=== PATIENT | female | born 1990 | race African-American/Black ===

== ENCOUNTER 2019-01-12 23:16 | Emergency (ER) | payer MEDICAID ==
[~2019-01-12] VITALS: Ht 170.2 cm; Wt 61.2 kg
[2019-01-12] MEDS ORDERED: ONDANSETRON HCL/PF 4 MG/2 ML VIAL ONE (23:57)
[2019-01-12] MEDS ORDERED: FAMOTIDINE/PF INJ 20 MG/2 ML VIAL IV ONE (23:58)
[2019-01-13] MEDS ORDERED: ONDANSETRON HCL/PF 4 MG/2 ML VIAL IVP ONE
[2019-01-13] MEDS ORDERED: MAG HYDROX/AL HYDROX/SIMETH 30 ML UDC PO ONE
[2019-01-13] MEDS ORDERED: FAMOTIDINE/PF INJ 20 MG/2 ML VIAL IV ONE
[2019-01-13] MEDS ORDERED: IV NS 0.9% 1,000 ML BAG IV ONE
[2019-01-13] MEDS ORDERED: LIDOCAINE VISCOUS 2% UD 15 ML UDC MM ONE
--- NOTE | 2019-01-13 | NUR ---
BIBSELF C/O ABDOMINAL CRAMPING X1 DAY. ALSO C/O MULTIPLE EPISODES OF VOMITTING. DENIES DIARRHEA, DYSURIA, SOB, CP. PT AAOX4. RESPIRATIONS EVEN AND UNLABORED. SKIN WARM AND INTACT. NO ACUTE DISTRESS NOTED AT THIS TIME. WILL CONTINUE TO MONITOR
--- NOTE | 2019-01-13 00:04 | NUR ---
IV INITIATED R AC 18. LABS DRAWN FROM SITE. LIFE GUARD AT BEDSIDE FOR COLLECTION
[2019-01-13 00:08] LABS: BASOPHILS # (AUTO) 0.1 /CMM (0.0-0.2); BASOPHILS % (AUTO) 0.9 % (0.0-2.0); EOSINOPHILS % (AUTO) 0.4 % (0.0-6.0); HEMATOCRIT 38 % (33-45); HEMOGLOBIN 13.2 g/dL (11.5-14.8); LYMPHOCYTES # (AUTO) 0.8 /CMM (0.8-4.8); LYMPHOCYTES % (AUTO) 6.2 % (20.0-44.0); MEAN CORPUSCULAR HGB CONC 35 g/dl (31.0-36.0); MEAN CORPUSCULAR VOLUME 93 fL (82-100); MONOCYTES # (AUTO) 0.5 /CMM (0.1-1.30); MONOCYTES % (AUTO) 3.5 % (2.0-12.0); NEUTROPHILS # (AUTO) 11.8 /CMM (1.8-8.9); PLATELET COUNT (AUTO) 204 /CMM (150-450); RED BLOOD CELL COUNT(AUTO) 4.08 MIL/uL (4.0-5.2); WHITE BLOOD COUNT (AUTO) 13.2 K/uL (4.3-11.0)
[2019-01-13 00:14] LABS: CALCIUM, SERUM 9.3 mg/dL (8.5-10.1); CREATININE 0.9 mg/dL (0.6-1.3); POTASSIUM 3.7 mmol/L (3.5-5.1)
[2019-01-13 00:20] LABS: ALBUMIN 4.4 g/dL (3.4-5.0); BILIRUBIN,DIRECT 0.2 mg/dL (0.0-0.2); BILIRUBIN,TOTAL 1.1 mg/dL (0.2-1.0); TOTAL PROTEIN, SERUM 8.3 g/dL (6.4-8.2)
[2019-01-13] MEDS ORDERED: LIDOCAINE VISCOUS 2% UD 15 ML UDC ONE (00:51)
[2019-01-13] MEDS ORDERED: MAG HYDROX/AL HYDROX/SIMETH 30 ML UDC ONE (00:52)
--- NOTE | 2019-01-13 01:12 | NUR ---
PT REQUESTING URINE TEST UPON DISCHARGE, AWARE
--- NOTE | 2019-01-13 01:17 | NUR ---
URINE COLLECTED AND SENT TO LAB
[2019-01-13 01:27] LABS: APPEARANCE,URINE Clear (CLEAR); BILIRUBIN,URINE Negative (NEGATIVE); BLOOD, URINE Trace-lysed Ery/uL (NEGATIVE); COLOR,URINE Yellow (YELLOW); KETONES,URINE 40 (NEGATIVE); LEUKOCYTE ESTERASE ,URINE Negative (NEGATIVE); NITRITE, URINE Negative (NEGATIVE); PROTEIN,URINE Negative (NEGATIVE); UGLUCOSE Negative (NEGATIVE); UROBILINOGEN,URINE 0.2 EU/dL (0.2)
[2019-01-13 01:54] LABS: BACTERIA,URINE None seen /HPF (None Seen); RBC,URINE 0-2 /HPF (0-2); SQUAMOUS EPITHELIAL CELL,UR Few /HPF (None Seen); WBC,URINE 0-2 /HPF (0-3)
--- NOTE | 2019-01-13 02:10 | NUR ---
Patient discharged to home in stable condition. Written and verbal after care instructions given. Patient verbalizes understanding of instruction. IV removed. Catheter intact and site benign. Pressure and 4x4 applied to site. No bleeding noted. Pt ambulatory with a steady gait
[2019-01-13 02:12] VITALS: BP 146/89
== END 2019-01-13 02:12 | disposition home or self-care (01) ==
LOC: ER 23:19
DX: R11.10 Vomiting, unspecified (principal); R10.13 Epigastric pain; Z60.2 Problems related to living alone
CPT/HCPCS: 36415; 80048; 80076; 81001; 85025; 96361; 96374; 96375; 99283; J2405; J3490; J7030; 81000-TC

== ENCOUNTER 2019-03-15 16:27 | Emergency (ER) | payer MEDICAID ==
[~2019-03-15] VITALS: Ht 170.2 cm; Wt 68.0 kg
[2019-03-15 16:45] VITALS: BP 126/82
[2019-03-15] MEDS ORDERED: HYDROCODONE/APAP 5/325MG 1 EACH TABLET ONE (17:56)
[2019-03-15] MEDS ORDERED: HYDROCODONE/APAP 5/325MG 1 EACH TABLET PO ONE (18:00)
== END 2019-03-15 18:13 | disposition home or self-care (01) ==
LOC: ER 16:30
DX: S86.011A Strain of right Achilles tendon, initial encounter (principal); Z88.0 Allergy status to penicillin; Z60.2 Problems related to living alone; W18.30XA Fall on same level, unspecified, initial encounter; Y93.39 Activity, other involving climbing, rappelling and jumping off; Y92.89 Other specified places as the place of occurrence of the external cause; Y99.8 Other external cause status

== ENCOUNTER 2019-04-04 20:21 | Emergency (ER) | payer MEDICAID ==
[~2019-04-04] VITALS: Ht 170.2 cm; Wt 61.2 kg
--- NOTE | 2019-04-04 20:37 | NUR ---
PT BIBSELF C/O VAGINAL DISCHARGE WITH FAINT ODOR X2 DAYS. PT DENIES PELVIC PAIN, DYSURIA, HEMATURIA, VAGINAL BLEEDING. PT AAOX4. RESPIRATIONS EVEN AND UNLABORED. NO ACUTE DISTRESS NOTED AT THIS TIME. WAITING MD VASQUES.
--- NOTE | 2019-04-04 20:50 | NUR ---
SET UP FOR PELVIC EXAMINATION AT BEDSIDE
--- NOTE | 2019-04-04 21:10 | NUR ---
SWABS COLLECTED AND SENT TO LAB
[2019-04-04] MEDS ORDERED: FLUCONAZOLE (100 MG) 100 MG TABLET ONE (21:14)
--- NOTE | 2019-04-04 21:24 | NUR ---
URINE COLLECTED AND SENT TO LAB
[2019-04-04] MEDS ORDERED: FLUCONAZOLE (100 MG) 100 MG TABLET PO ONE (21:30)
[2019-04-04 21:35] LABS: APPEARANCE,URINE Clear (CLEAR); BILIRUBIN,URINE Negative (NEGATIVE); BLOOD, URINE Negative Ery/uL (NEGATIVE); COLOR,URINE Yellow (YELLOW); KETONES,URINE Negative (NEGATIVE); LEUKOCYTE ESTERASE ,URINE Trace (NEGATIVE); NITRITE, URINE Negative (NEGATIVE); PH,URINE 6.5 (5.0-8.0); PROTEIN,URINE Negative (NEGATIVE); UGLUCOSE Negative (NEGATIVE); UROBILINOGEN,URINE 0.2 EU/dL (0.2)
[2019-04-04 21:41] LABS: BACTERIA,URINE Few /HPF (None Seen); RBC,URINE NONE SEEN /HPF (0-2); SQUAMOUS EPITHELIAL CELL,UR Few /HPF (None Seen)
[2019-04-04] MEDS ORDERED: IBUPROFEN 600 MG TABLET PO ONE ×2 (21:59→22:00)
--- NOTE | 2019-04-04 22:03 | NUR ---
Patient discharged to home in stable condition. Written and verbal after care instructions given. Patient verbalizes understanding of instruction. Pt ambulatory with a steady gait
[2019-04-04 22:09] VITALS: BP 137/88
== END 2019-04-04 22:09 | disposition home or self-care (01) ==
LOC: ER 20:21
DX: B37.3 Candidiasis of vulva and vagina (principal); Z98.890 Other specified postprocedural states; Z88.0 Allergy status to penicillin; Z60.2 Problems related to living alone
CPT/HCPCS: 81000-TC; 84703-TC; 87210-TC; 87491; 87591

== ENCOUNTER 2019-07-12 05:37 | Emergency (ER) | payer MEDICAID ==
[~2019-07-12] VITALS: Ht 172.7 cm; Wt 61.2 kg
--- NOTE | 2019-07-12 05:45 | NUR ---
PT PRESENTED TO THE ER WITH A C/O N/V WITH WEAKNESS. PT STATED THAT SHE STARTED TO FEEL SICK AROUND MIDNIGHT AND HAS BEEN VOMITTING SINCE. PT STATED THAT SHE IS FREEZING, BUT IS AFEBRILE. PT IS DIAPHORETIC AND IS C/O FEELING WEAK. PT WAS PLACED ON THE MONITOR AND CONTINUOUS PULSE OX. RESP ARE EVEN AND UNLABORED.
[2019-07-12] MEDS ORDERED: ONDANSETRON HCL/PF 4 MG/2 ML VIAL ONE ×2 (05:50→07:07)
[2019-07-12] MEDS ORDERED: ONDANSETRON HCL/PF 4 MG/2 ML VIAL IVP ONE (06:00)
[2019-07-12] MEDS ORDERED: IV NS 0.9% 1,000 ML BAG IV ONE (06:00)
--- NOTE | 2019-07-12 06:14 | NUR ---
DR COLIN IS AT THE BEDSIDE SPEAKING TO THE PT.
[2019-07-12 06:17] LABS: BASOPHILS # (AUTO) 0.1 /CMM (0.0-0.2); BASOPHILS % (AUTO) 1.7 % (0.0-2.0); CALCIUM, SERUM 9.1 mg/dL (8.5-10.1); EOSINOPHILS % (AUTO) 2.3 % (0.0-6.0); HEMATOCRIT 39 % (33-45); HEMOGLOBIN 13.3 g/dL (11.5-14.8); LYMPHOCYTES # (AUTO) 0.9 /CMM (0.8-4.8); LYMPHOCYTES % (AUTO) 13.8 % (20.0-44.0); MEAN CORPUSCULAR HGB CONC 34 g/dl (31.0-36.0); MEAN CORPUSCULAR VOLUME 92 fL (82-100); MONOCYTES # (AUTO) 0.2 /CMM (0.1-1.30); MONOCYTES % (AUTO) 3.8 % (2.0-12.0); NEUTROPHILS % (AUTO) 78.4 % (43.0-81.0); PLATELET COUNT (AUTO) 207 /CMM (150-450); POTASSIUM 3.1 mmol/L (3.5-5.1); RED BLOOD CELL COUNT(AUTO) 4.28 MIL/uL (4.0-5.2); WHITE BLOOD COUNT (AUTO) 6.3 K/uL (4.3-11.0)
--- NOTE | 2019-07-12 06:18 | NUR ---
PT REC'D 2 WARM BLANKETS.
[2019-07-12 06:23] LABS: ALBUMIN 4.1 g/dL (3.4-5.0); BILIRUBIN,DIRECT 0.1 mg/dL (0.0-0.2); BILIRUBIN,TOTAL 0.3 mg/dL (0.2-1.0)
--- NOTE | 2019-07-12 07:05 | NUR ---
PT IS ACTIVELY VOMITTING. NOTIFIED. NEW ORDERS GIVEN.
--- NOTE | 2019-07-12 07:24 | NUR ---
PT ENDORSED TO [facility] FOR AUTUMN.
--- NOTE | 2019-07-12 07:24 | NUR ---
PT WAS ASSISTED VIA WC TO THE BATHROOM. URINE SAMPLE OBTAINED AND TAKEN TO LAB. LAB CALLED FOR P/U.
--- NOTE | 2019-07-12 07:26 | NUR ---
PT RECEIVED REPORT FROM JACKIE PARK FOR AUTUMN. PT IS AAOX4, NOT IN RESPIRATORY DISTRESS, KEPT RESTED AND COMFORTABLE, WILL CONTINUE TO MONITOR.
[2019-07-12 07:30] LABS: APPEARANCE,URINE CLEAR (CLEAR); BILIRUBIN,URINE NEGATIVE (NEGATIVE); BLOOD, URINE NEGATIVE Ery/uL (NEGATIVE); COLOR,URINE YELLOW (YELLOW); KETONES,URINE NEGATIVE (NEGATIVE); LEUKOCYTE ESTERASE ,URINE NEGATIVE (NEGATIVE); NITRITE, URINE NEGATIVE (NEGATIVE); PH,URINE 7.5 (5.0-8.0); PROTEIN,URINE NEGATIVE (NEGATIVE); UGLUCOSE NEGATIVE (NEGATIVE); UROBILINOGEN,URINE 0.2 EU/dL (0.2)
[2019-07-12 08:17] VITALS: BP 144/81
--- NOTE | 2019-07-12 08:17 | NUR ---
IV removed. Catheter intact and site benign. Pressure and 4x4 applied to site. No bleeding noted. Patient discharged to home in stable condition. Written and verbal after care instructions given. Patient verbalizes understanding of instruction.
== END 2019-07-12 08:18 | disposition home or self-care (01) ==
LOC: ER 05:38
DX: K29.70 Gastritis, unspecified, without bleeding (principal); R11.2 Nausea with vomiting, unspecified; Z98.890 Other specified postprocedural states; Z88.0 Allergy status to penicillin; Z60.2 Problems related to living alone
CPT/HCPCS: 36415; 80048; 80076; 81001; 83690; 84703; 85025; 96361; 96374; 99283; J2405 ×2; J7030; 81000-TC

== ENCOUNTER 2019-07-12 13:20 | Emergency (ER) | payer MEDICAID ==
[~2019-07-12] VITALS: Ht 172.7 cm; Wt 61.2 kg
[2019-07-12] MEDS ORDERED: METOCLOPRAMIDE HCL 10 MG/2 ML VIAL ONE (14:42)
[2019-07-12] MEDS ORDERED: diphenhydrAMINE HCL 50 MG/ML VIAL ONE (14:42)
[2019-07-12] MEDS ORDERED: FAMOTIDINE/PF INJ 20 MG/2 ML VIAL IV ONE ×2 (14:42→15:00)
[2019-07-12] MEDS ORDERED: IV D5/ 0.9% NACL 1,000 ML IV ONE (15:00)
[2019-07-12] MEDS ORDERED: METOCLOPRAMIDE HCL 10 MG/2 ML VIAL IV ONE ×2 (15:00→16:00)
[2019-07-12] MEDS ORDERED: diphenhydrAMINE HCL 50 MG/ML VIAL IV ONE (15:00)
--- NOTE | 2019-07-12 15:01 | NUR ---
c/o Epegastric pain w/ n/v. sts seen earlier for same reason. PT AAOX4, VSS. DENIES CP, SOB, DIZZINESS, DIARRHEA @ THIS TIME. PT SEEN & EVAL'D BY DR. RODRIGUEZ. MEDICATED ORDERED, PT JAMES WELL. WILL CONT TO MONITOR.
[2019-07-12 16:22] VITALS: BP 124/74
--- NOTE | 2019-07-12 16:22 | NUR ---
Patient discharged to home in stable condition. Written and verbal after care instructions given. Patient verbalizes understanding of instruction. IV removed. Catheter intact and site benign. Pressure and 4x4 applied to site. No bleeding noted.
== END 2019-07-12 16:23 | disposition home or self-care (01) ==
LOC: ER 13:24
DX: R10.13 Epigastric pain (principal); R11.2 Nausea with vomiting, unspecified; Z98.890 Other specified postprocedural states; Z88.0 Allergy status to penicillin; Z60.2 Problems related to living alone
CPT/HCPCS: 96365; 96375; 99283; J1200; J2765; J3490; J7042

== ENCOUNTER 2020-02-13 09:45 | Emergency (ER) | payer MEDICAID ==
[~2020-02-13] VITALS: Ht 172.7 cm; Wt 63.5 kg
--- NOTE | 2020-02-13 09:54 | NUR ---
CAME IN FOR ABDOMINAL PAIN, NAUSEA AND VOMITING SINCE LAST NIGHT. TO ER BED 2, HOOKED TO MONITOR, CHANGED TO HOSP GOWN, WARM BLANKET PROVIDED. PATIENT AAO x 4, BREATHING EVEN AND UNLABORED. AWAITING MD VASQUES.
--- NOTE | 2020-02-13 10:04 | NUR ---
DR COLIN AT BEDSIDE
[2020-02-13] MEDS ORDERED: FAMOTIDINE/PF INJ 20 MG/2 ML VIAL IV ONE ×2 (10:13→10:30)
[2020-02-13] MEDS ORDERED: ONDANSETRON HCL/PF 4 MG/2 ML VIAL ONE (10:13)
[2020-02-13 10:25] LABS: BASOPHILS # (AUTO) 0.2 /CMM (0.0-0.2); BASOPHILS % (AUTO) 3.2 % (0.0-2.0); EOSINOPHILS % (AUTO) 0.4 % (0.0-6.0); HEMATOCRIT 42 % (33-45); HEMOGLOBIN 13.9 g/dL (11.5-14.8); LYMPHOCYTES # (AUTO) 1.3 /CMM (0.8-4.8); LYMPHOCYTES % (AUTO) 17.4 % (20.0-44.0); MEAN CORPUSCULAR HGB CONC 33 g/dl (31.0-36.0); MEAN CORPUSCULAR VOLUME 94 fL (82-100); MONOCYTES # (AUTO) 0.3 /CMM (0.1-1.30); MONOCYTES % (AUTO) 3.9 % (2.0-12.0); NEUTROPHILS # (AUTO) 5.6 /CMM (1.8-8.9); NEUTROPHILS % (AUTO) 75.1 % (43.0-81.0); PLATELET COUNT (AUTO) 223 /CMM (150-450); RED BLOOD CELL COUNT(AUTO) 4.46 MIL/uL (4.0-5.2); WHITE BLOOD COUNT (AUTO) 7.5 K/uL (4.3-11.0)
[2020-02-13] MEDS ORDERED: IV NS 0.9% 1,000 ML BAG IV ONE (10:30)
[2020-02-13] MEDS ORDERED: ONDANSETRON HCL/PF 4 MG/2 ML VIAL IVP ONE (10:30)
[2020-02-13 10:31] LABS: CALCIUM, SERUM 9.7 mg/dL (8.5-10.1); CREATININE 0.9 mg/dL (0.6-1.3); POTASSIUM 3.3 mmol/L (3.5-5.1)
[2020-02-13 10:37] LABS: ALBUMIN 4.6 g/dL (3.4-5.0); BILIRUBIN,DIRECT 0.1 mg/dL (0.0-0.2); BILIRUBIN,TOTAL 0.8 mg/dL (0.2-1.0); TOTAL PROTEIN, SERUM 8.4 g/dL (6.4-8.2)
--- NOTE | 2020-02-13 11:02 | NUR ---
URINE SAMPLE COLLECTED AND SENT TO LAB
[2020-02-13 11:14] LABS: APPEARANCE,URINE Clear (CLEAR); BILIRUBIN,URINE Negative (NEGATIVE); BLOOD, URINE Trace-intact Ery/uL (NEGATIVE); COLOR,URINE Yellow (YELLOW); KETONES,URINE Trace (NEGATIVE); LEUKOCYTE ESTERASE ,URINE Negative (NEGATIVE); NITRITE, URINE Negative (NEGATIVE); PH,URINE 8.5 (5.0-8.0); PROTEIN,URINE 100 mg/dl (NEGATIVE); UGLUCOSE Negative (NEGATIVE); UROBILINOGEN,URINE 0.2 EU/dL (0.2)
[2020-02-13 11:16] LABS: BACTERIA,URINE Few /HPF (None Seen); SQUAMOUS EPITHELIAL CELL,UR Few /HPF (None Seen)
[2020-02-13] MEDS ORDERED: METOCLOPRAMIDE HCL 10 MG/2 ML VIAL ONE (11:28)
[2020-02-13] MEDS ORDERED: METOCLOPRAMIDE HCL 10 MG/2 ML VIAL IV ONE (11:30)
--- NOTE | 2020-02-13 11:54 | NUR ---
IV removed. Catheter intact and site benign. Pressure and 4x4 applied to site. No bleeding noted.Patient discharged to home in stable condition. Written and verbal after care instructions given. Patient verbalizes understanding of instruction.
[2020-02-13 12:00] VITALS: BP 132/79
== END 2020-02-13 12:00 | disposition home or self-care (01) ==
LOC: ER 09:50
DX: K29.00 Acute gastritis without bleeding (principal); R11.10 Vomiting, unspecified; Z98.890 Other specified postprocedural states; Z88.0 Allergy status to penicillin; Z60.2 Problems related to living alone
CPT/HCPCS: 36415; 80048; 80076; 81001; 83690; 84703; 85025; 96361; 96374; 96375; 99284; J2405; J2765; J3490; J7030 ×2; 81000-TC

== ENCOUNTER 2021-06-28 16:17 | Emergency (ER) | payer MEDICAID ==
[~2021-06-28] VITALS: Ht 172.7 cm; Wt 66.2 kg
[2021-06-28 16:17] VITALS: BP 139/89
[2021-06-28] MEDS ORDERED: LIDOCAINE 2% 20 ML MDV TP ONE (16:30)
[2021-06-28] MEDS ORDERED: LIDOCAINE 2% 20 ML MDV ONE (17:03)
== END 2021-06-28 17:04 | disposition home or self-care (01) ==
LOC: ER 16:21
DX: S60.457A Superficial foreign body of left little finger, initial encounter (principal); F17.200 Nicotine dependence, unspecified, uncomplicated; Z98.890 Other specified postprocedural states; Z88.0 Allergy status to penicillin; Z60.2 Problems related to living alone; W45.8XXA Other foreign body or object entering through skin, initial encounter; Y93.89 Activity, other specified; Y92.89 Other specified places as the place of occurrence of the external cause; Y99.8 Other external cause status
CPT/HCPCS: 64450; 99284; J3490

== ENCOUNTER 2021-07-19 23:12 | Emergency (ER) | payer MEDICAID ==
--- NOTE | 2021-07-19 23:40 | NUR ---
CALLED TO TRIAGE NO IN WAITING ROOM
--- NOTE | 2021-07-19 23:49 | NUR ---
Note undone in EDM - 07/20/21 at 0016 by SHAISTA BIB MOTHER FOR SYNCOPAL EPISODE AT 2030 DENIES ANY PAIN OR TRAUMA, NO INJURIES OR NEURO DEFECITS NOTED. STATES SHE RECIEVED FIRST DOSE OF PFIZER ON 07/15 AND HAD A SYNCOPAL EPISODE FOLLOWING VACCINE. STATES SINCE THEN SHE HAS HAD WORSTENING CONGESTED AND ASSOSCIATED SOB AND CONGESTION OF EARS. PT BREATHING EVEN AND UNLABORED PLACED ON A MONITOR AND ALL VSS. MD WAS AT THE BEDSIDE FOR EVAL.
--- NOTE | 2021-07-20 00:01 | NUR ---
CALLED TO [facility] STILL NO ANSWER
--- NOTE | 2021-07-20 00:20 | NUR ---
CALLED TO ABUNDIO NOT IN WAITING ROOM
== END 2021-07-20 00:24 | disposition left against medical advice (07) ==
LOC: ER 23:12
DX: Z53.21 Procedure and treatment not carried out due to patient leaving prior to being seen by health care provider (principal)

== ENCOUNTER → 2021-10-07 | Emergency (ER) | payer MEDICAID ==
[~2021-10-07] VITALS: Ht 172.7 cm; Wt 61.2 kg
[~2021-10-07] MED LIST: IV NS 0.9% 1,000 ML BAG IV ONE; METOCLOPRAMIDE HCL 10 MG/2 ML VIAL IV ONE; METOCLOPRAMIDE HCL 10 MG/2 ML VIAL ONE; ONDA4TAB5 PO; ONDANSETRON HCL/PF 4 MG/2 ML VIAL IVP ONE; ONDANSETRON HCL/PF 4 MG/2 ML VIAL ONE
--- NOTE | 2021-10-07 19:10 | NUR ---
[id number] HOME C/O ABDOMINAL PAIN, NAUSEA, VOMITING THE WHOLE DAY. PATIENT ALERT AND ORIENTED X3. AMBULATORY WITH NON LABORED BREATHING PLACED IN BED 12 ON MONITOR AND POX.
--- NOTE | 2021-10-07 19:15 | NUR ---
pt bibra c/o abdominal pain ,nausea and vomited x6. pt is a/a/o x4.pt placed on monitor vss.
--- NOTE | 2021-10-07 19:33 | NUR ---
BLOOD COLLECTED AND SENT TO LAB
[2021-10-07 19:50] LABS: BASOPHILS % (AUTO) 0.5 % (0.0-2.0); EOSINOPHILS % (AUTO) 0.3 % (0.0-6.0); HEMATOCRIT 41 % (33-45); HEMOGLOBIN 13.7 g/dL (11.5-14.8); LYMPHOCYTES % (AUTO) 13.2 % (20.0-44.0); MEAN CORPUSCULAR HGB CONC 34 g/dl (31.0-36.0); MEAN CORPUSCULAR VOLUME 93 fL (82-100); MONOCYTES # (AUTO) 0.3 K/uL (0.1-1.30); MONOCYTES % (AUTO) 4.3 % (2.0-12.0); NEUTROPHILS # (AUTO) 6.3 K/uL (1.8-8.9); NEUTROPHILS % (AUTO) 81.7 % (43.0-81.0); PLATELET COUNT (AUTO) 208 K/uL (150-450); RED BLOOD CELL COUNT(AUTO) 4.37 MIL/uL (4.0-5.2); WHITE BLOOD COUNT (AUTO) 7.7 K/uL (4.3-11.0)
[2021-10-07 20:01] LABS: CALCIUM, SERUM 9.4 mg/dL (8.5-10.1); CREATININE 0.9 mg/dL (0.6-1.3); POTASSIUM 3.4 mmol/L (3.5-5.1)
[2021-10-07 20:07] LABS: ALBUMIN 4.3 g/dL (3.4-5.0); BILIRUBIN,DIRECT 0.2 mg/dL (0.0-0.2); BILIRUBIN,TOTAL 0.8 mg/dL (0.2-1.0); TOTAL PROTEIN, SERUM 8.3 g/dL (6.4-8.2)
[2021-10-07 21:36] LABS: BILIRUBIN,URINE NEGATIVE (NEGATIVE); COLOR,URINE YELLOW (YELLOW); LEUKOCYTE ESTERASE ,URINE NEGATIVE (NEGATIVE); NITRITE, URINE NEGATIVE (NEGATIVE); PH,URINE 8.5 (5.0-8.0); PROTEIN,URINE 30 mg/dl (NEGATIVE); UGLUCOSE NEGATIVE (NEGATIVE); UROBILINOGEN,URINE 0.2 EU/dL (0.2)
[2021-10-07 21:50] LABS: RBC,URINE 0-2 /HPF (0-2)
[2021-10-07 21:51] LABS: BACTERIA,URINE RARE /HPF (None Seen); MUCUS,URINE Moderate /LPF (None Seen)
--- NOTE | 2021-10-07 22:01 | NUR ---
Patient discharged to home in stable condition. Written and verbal after care instructions given. Patient verbalizes understanding of instruction.
[2021-10-07 22:02] VITALS: BP 122/80
--- NOTE | 2021-10-07 22:09 | NUR ---
IV removed. Catheter intact and site benign. Pressure and 4x4 applied to site. No bleeding noted.
== END | disposition home or self-care (01) ==
LOC: ER 18:59
DX: R10.84 Generalized abdominal pain (principal); R11.2 Nausea with vomiting, unspecified; R19.7 Diarrhea, unspecified; Z87.19 Personal history of other diseases of the digestive system; Z88.0 Allergy status to penicillin; Z79.899 Other long term (current) drug therapy; Z60.2 Problems related to living alone
CPT/HCPCS: 36415; 80048; 80076; 81001; 83690; 84703; 85025; 96361; 96374; 96375; 99284; J2405; J2765

== ENCOUNTER 2022-07-05 02:00 | Emergency (ER) | payer MEDICAID ==
[~2022-07-05] VITALS: Ht 172.7 cm; Wt 63.5 kg
[~2022-07-05 02:00] MED LIST changes: -IV NS 0.9% 1,000 ML BAG IV ONE; -METOCLOPRAMIDE HCL 10 MG/2 ML VIAL IV ONE; -METOCLOPRAMIDE HCL 10 MG/2 ML VIAL ONE; -ONDANSETRON HCL/PF 4 MG/2 ML VIAL IVP ONE; -ONDANSETRON HCL/PF 4 MG/2 ML VIAL ONE
--- NOTE | 2022-07-05 02:11 | NUR ---
BIBRA 860 FROM HOME C/O ETOH SINCE 1800 & ABD PAIN +N/V/D. PT A/OX4. TOLERATING R/A WELL WITH NO RESP DISTRESS. SAFETY MEASURES IN PLACE.
[2022-07-05] MEDS ORDERED: ONDANSETRON HCL/PF 4 MG/2 ML VIAL IV ONE ×2 (02:30→07:00)
[2022-07-05] MEDS ORDERED: FAMOTIDINE/PF INJ 20 MG/2 ML VIAL IV ONE ×2 (02:30→02:35)
[2022-07-05] MEDS ORDERED: IV NS 0.9% 1,000 ML IV ONE (02:30)
[2022-07-05] MEDS ORDERED: ONDANSETRON HCL/PF 4 MG/2 ML VIAL ONE ×2 (02:34→08:13)
--- NOTE | 2022-07-05 02:46 | NUR ---
20G IV INSERTED AT [facility]. BLOOD COLLECTED AND SENT TO LAB
[2022-07-05 02:59] LABS: BASOPHILS # (AUTO) 0.1 K/uL (0.0-0.2); BASOPHILS % (AUTO) 0.8 % (0.0-2.0); HEMATOCRIT 39 % (33-45); HEMOGLOBIN 12.7 g/dL (11.5-14.8); LYMPHOCYTES # (AUTO) 1.8 K/uL (0.8-4.8); LYMPHOCYTES % (AUTO) 24.6 % (20.0-44.0); MEAN CORPUSCULAR HGB CONC 33 g/dl (31.0-36.0); MEAN CORPUSCULAR VOLUME 89 fL (82-100); MONOCYTES # (AUTO) 0.6 K/uL (0.1-1.30); MONOCYTES % (AUTO) 8.3 % (2.0-12.0); NEUTROPHILS # (AUTO) 4.7 K/uL (1.8-8.9); NEUTROPHILS % (AUTO) 65.3 % (43.0-81.0); PLATELET COUNT (AUTO) 240 K/uL (150-450); RED BLOOD CELL COUNT(AUTO) 4.35 MIL/uL (4.0-5.2); WHITE BLOOD COUNT (AUTO) 7.2 K/uL (4.3-11.0)
[2022-07-05 03:16] LABS: CREATININE 0.8 mg/dL (0.6-1.3); POTASSIUM 3.5 mmol/L (3.5-5.1)
[2022-07-05 03:17] LABS: BILIRUBIN,TOTAL 0.2 mg/dL (0.2-1.0); TOTAL PROTEIN, SERUM 7.9 g/dL (6.4-8.2)
[2022-07-05] MEDS ORDERED: diphenhydrAMINE HCL 50 MG/ML VIAL ONE (03:46)
[2022-07-05] MEDS ORDERED: PROCHLORPERAZINE EDISYLATE 10 MG/2 ML VIAL ONE (03:46)
[2022-07-05] MEDS ORDERED: diphenhydrAMINE HCL 50 MG/ML VIAL IV ONE (04:00)
[2022-07-05] MEDS ORDERED: PROCHLORPERAZINE EDISYLATE 10 MG/2 ML VIAL IVP ONE (04:00)
[2022-07-05] MEDS ORDERED: FAMO20TA8 PO (05:48)
[2022-07-05] MEDS ORDERED: MAG-55 PO (05:48)
[2022-07-05] MEDS ORDERED: ONDA4TAB5 PO (06:55)
--- NOTE | 2022-07-05 08:40 | NUR ---
Patient discharged to home in stable condition. Written and verbal after care instructions given. Patient verbalizes understanding of instruction.IV removed. Catheter intact and site benign. Pressure and 4x4 applied to site. No bleeding noted.
[2022-07-05 10:01] VITALS: BP 138/82
== END 2022-07-05 10:02 | disposition home or self-care (01) ==
LOC: ER 02:01
DX: R10.13 Epigastric pain (principal); R11.2 Nausea with vomiting, unspecified; F17.200 Nicotine dependence, unspecified, uncomplicated; Z88.0 Allergy status to penicillin; Z60.2 Problems related to living alone; Z79.899 Other long term (current) drug therapy
CPT/HCPCS: 99284; 96374; 96375; 96361; 96376; 85025; 83690; 84703; 36415; 80053; J0780; J1200; J3490; J2405 ×2; J7030